=== PATIENT | male | born 1955 | race Caucasian/White ===

== ENCOUNTER 2018-04-24 10:56 | Emergency (ER) | payer BC ==
[~2018-04-24] VITALS: Ht 172.7 cm; Wt 88.6 kg
[2018-04-24 11:06] VITALS: Ht 172.7 cm; Wt 88.6 kg
[2018-04-24] MEDS ORDERED: GLUCOPHAGE500 MG PO (11:09)
[2018-04-24] MEDS ORDERED: CETIRIZINE HCL5 MG PO (11:09)
[2018-04-24] MEDS ORDERED: CYCLOBENZAPRINE5 MG PO (11:10)
[2018-04-24] MEDS ORDERED: COLACE100 MG PO (11:10)
[2018-04-24] MEDS ORDERED: ACETAMINOPHEN325 MG PO (11:10)
[2018-04-24] MEDS ORDERED: NORCO 7.5/325 T1 TA1 PO (13:20)
[2018-04-24] MEDS ORDERED: NEURONTIN 300300 MG PO (13:20)
[2018-04-24 13:46] VITALS: BP 146/94
== END 2018-04-24 13:46 | disposition home or self-care (01) ==
LOC: D.ER 10:56
DX: M54.16 Radiculopathy, lumbar region (principal); E11.9 Type 2 diabetes mellitus without complications

== ENCOUNTER 2018-04-27 20:15 | Emergency (ER) | payer BC ==
[~2018-04-27] VITALS: Ht 172.7 cm; Wt 88.6 kg
[2018-04-27 20:15] VITALS: Ht 172.7 cm; Wt 88.6 kg
[~2018-04-27 20:15] MED LIST: ACETAMINOPHEN325 MG PO; CETIRIZINE HCL5 MG PO; COLACE100 MG PO; CYCLOBENZAPRINE5 MG PO; GLUCOPHAGE500 MG PO; NEURONTIN 300300 MG PO; NORCO 7.5/325 T1 TA1 PO
[2018-04-27] MEDS ORDERED: DILAUDID4 MG PO (22:02)
[2018-04-27] MEDS ORDERED: PREDNISONE20 MG PO (22:02)
[2018-04-27 22:44] VITALS: BP 114/75
== END 2018-04-27 22:44 | disposition home or self-care (01) ==
LOC: D.ER 20:15
DX: M54.5 Low back pain (principal); M54.16 Radiculopathy, lumbar region; E11.9 Type 2 diabetes mellitus without complications

== ENCOUNTER → 2019-06-15 08:17 | Outpatient (CLI) | payer BC ==
[2018-04-27 20:15] VITALS: BMI 29.7
[~2019-06-15 08:17] MED LIST changes: +DILAUDID4 MG PO; +PREDNISONE20 MG PO
== END | disposition home or self-care (01) ==
LOC: D.CT 08:17
PROVIDERS: ATTEND Internal Medicine Gastroenterology
DX: K38.9 Disease of appendix, unspecified (principal)

== ENCOUNTER → 2019-11-09 07:48 | Outpatient (CLI) | payer BC ==
[2018-04-27 20:15] VITALS: BMI 29.7
== END | disposition home or self-care (01) ==
LOC: D.CT 10-26 09:00
PROVIDERS: ATTEND Internal Medicine Gastroenterology
DX: K38.9 Disease of appendix, unspecified (principal); R93.5 Abnormal findings on diagnostic imaging of other abdominal regions, including retroperitoneum; Z09 Encounter for follow-up examination after completed treatment for conditions other than malignant neoplasm